=== PATIENT | female | born 1955 | race African-American/Black ===

== ENCOUNTER 2017-06-04 14:50 | Emergency (ER) | payer OTHER ==
[~2017-06-04] VITALS: Ht 162.6 cm; Wt 80.0 kg
[~2017-06-04 14:50] MED LIST: AMOXICILLIN500 MG OR; AMOXICILLIN500 MG PO; AUGMENTIN500TAB PO; AUGMENTIN875TAB PO; CITALOPRAM20 MG PO; CLARITIN10 M1 OR; COMBIVENT IN; HOME NEBULIZER; LEVOTHROID75 MCG PO; LEVOTHYROXIN50 MC1 PO; LEVOTHYROXIN75 MCG PO; LEVOTHYROXIN88 MC1 PO; LORTAB5 PO; MEDDOSEPAK OR; NAPROSYN500 MG PO; PREDNISONE20 MG PO; PROVENTIL HFA IN; VIT C/ACEROL500 MG OR; ZOFRAN ODT8 MG PO; ZPAK OR
[2017-06-04] MEDS ORDERED: [UNRECOGNIZED DRUG - REMARK] (15:10)
[2017-06-04] MEDS ORDERED: EC-NAPROSYN500 MG PO (15:56)
[2017-06-04 17:07] VITALS: BP 163/93
== END 2017-06-04 17:07 | disposition home or self-care (01) | DRG 605 ==
LOC: ED 14:50
DX: S00.83XA Contusion of other part of head, initial encounter (principal); S09.90XA Unspecified injury of head, initial encounter; R04.0 Epistaxis; W01.198A Fall on same level from slipping, tripping and stumbling with subsequent striking against other object, initial encounter; Y93.01 Activity, walking, marching and hiking; Y92.007 Garden or yard of unspecified non-institutional (private) residence as the place of occurrence of the external cause

== ENCOUNTER 2018-05-29 08:30 | Observation (INO) | payer OTHER ==
[~2018-05-29] VITALS: Ht 162.6 cm; Wt 114.1 kg
[~2018-05-29 08:30] MED LIST changes: +EC-NAPROSYN500 MG PO; +[UNRECOGNIZED DRUG - REMARK]
--- NOTE | 2018-05-29 08:35 | NUR ---
PATIENT BACK TO ROOM FOR EXAM.
[2018-05-29 09:19] LABS: HEMATOCRIT 42.5 % (37.0-47.0); HEMOGLOBIN 12.9 g/dl (12.0-16.0); IMMATURE GRANULOCYTES 0.5 % (0.0-5.0); MEAN CELL VOLUME 94.7 fL CALC (80.0-100.0); MEAN CORPUSCULAR HGB 28.7 pG CALC (26.0-32.0); MEAN CORPUSCULAR HGB CONC 30.4 g/L CALC (32.0-36.0); NEUT# 3.19 thou/uL (2.00-7.15); RED BLOOD COUNT 4.49 mill/uL (4.20-5.60); RED CELL DISTRI WIDTH 13.2 % (11.5-15.5)
[2018-05-29 09:49] LABS: ANION GAP 17 (6-22 (CALC)); BUN 7 mg/dL (8-23); BUN/CREATININE RATIO 9 (12-20 (CALC)); CARBON DIOXIDE 28 mmol/l (22-30); CHLORIDE 100 mmol/l (95-108); CREATININE 0.8 mg/dL (0.5-1.0); GFR > 60 ML/MIN (>=60 (CALC)); GFR FOR AFR.AMER. > 60 ML/MIN (>=60 (CALC)); SODIUM 140 mmol/l (137-146)
--- NOTE | 2018-05-29 10:00 | NUR ---
REPORT RECEIVED FROM KARSTEN SMITH
[2018-05-29] MEDS ORDERED: LEVOTHYROXIN75 MC1 PO (10:23)
[2018-05-29] MEDS ORDERED: MELOXICAM15 MG PO (10:23)
[2018-05-29] MEDS ORDERED: GABAPENTIN300 M2 PO (10:25)
[2018-05-29] MEDS ORDERED: ASPIRIN LOW DOS81 MG PO (10:26)
[2018-05-29] MEDS ORDERED: OXYCODONE HCL30 MG PO (10:27)
[2018-05-29] MEDS ORDERED: LISINOPRIL5 MG PO (10:27)
--- NOTE | 2018-05-29 10:28 | NUR ---
PT AMBULATED TO BATHROOM AND BACK TO BED. PT HAD COUGHING EPISODE AFTER RETURN
--- NOTE | 2018-05-29 11:02 | NUR ---
REPORT CALLED TO CHARISMA- KEN SMITH- ACCEPTED PT
--- NOTE | 2018-05-29 11:10 | NUR ---
PT ARRIVED TO MS2 VIA STRETCHER ACCOMPANIED BY ER NURSE. PT ALERT AND ORIENTED X3, AMBULATED TO BED FOR WEIGHT. ORIENTED PT TO ROOM AND CALL LIGHT, NOTED PT HAS A PRODUCTIVE COUGH CLEAR THIN SPUTUM. DISCUSSED POC. PT ASSISTED TO BATHROOM. RETURNED TO BED AND VITALS OBTAINED. ADMISSION ASSESSMENT COMPETED. DISCUSSED DIET AND ACCUCHECKS WITH PT. IV ZITHROMAX INFUSING, CALL LIGHT IN REACH,CONTINUE TO MONITOR.
--- NOTE | 2018-05-29 11:18 | NUR ---
Admission Note Report Given to: LAWRENCE RN Transported by: Wheelchair X Stretcher Transported with: X Nurse Transporter X Patent IV O2 X Tenter Feeder TRANSPORTED TO [facility] [place] WITHOUT INCIDENT
[2018-05-29 11:27] VITALS: BP 168/86
[2018-05-29 14:22] VITALS: BP 130/56
[2018-05-29 16:26] LABS: CHOLESTEROL HDL RATIO 5.6 (<4.4 (CALC))
--- NOTE | 2018-05-29 17:25 | NUR ---
DISCUSSED CT EXAM WITH PT, SHE AGREES. PT TAKEN DOWN VIA WHEELCHAIR ACCOMPANIED BY FUNERAL DIRECTOR/EMBALMER/OWNER AND PT'S BOYFRIEND. TOLERATED WELL. RETURNED PT TO ROOM AND DINNER PROVIDED. CALL LIGHT IN REACH,CONTINUE TO MONITOR.
--- NOTE | 2018-05-29 17:47 | NUR ---
DISCUSSED WITH PT NOVOLOG INSULIN AND SLIDING SCALE DOSE. PT IN AGREEMENT TO TAKE INSULIN. CALL LIGHT IN REACH,CONTINUE TO MONITOR.
[2018-05-29 19:31] VITALS: BP 134/61
--- NOTE | 2018-05-29 19:50 | NUR ---
ASSESSMENT IS COMPLETED: IV SITE IS FREE FROM REDNESS OR EDEMA. HR IS REG,PULSES ARE STRONG X4, ABD IS SOFT WITH ACTIVE BS. BREATH SOUNDS ARE COARSE AND WHEEZES, CONTINUE TO OBSERVE AND MONITOR
[2018-05-30] VITALS (7 sets, daily range): BP systolic 109–130; BP diastolic 44–68
--- NOTE | 2018-05-30 00:15 | NUR ---
PT IS RESTING IN BED, SIGNIFICANT OTHER IN THE ROOM.IV SITE IS FREE FROM REDNESS OR EDEMA. CONTINUE TO OSBERVE AND MONITOR.
--- NOTE | 2018-05-30 04:05 | NUR ---
PT HAS BEEN RESTING IN BED WITH SIGNIFICANT OTHER IN THE ROOM. IV SITE IS FREE FROM REDNESS OR EDEMA. TELE MONITOR IN PLACE. CONTINUE TO OBSERVE AND MONITOR.
--- NOTE | 2018-05-30 05:17 | NUR ---
URINE SENT TO THE LAB FOR TESTING.
[2018-05-30 05:37] LABS: URINE BILIRUBIN - DIPSTICK NEGATIVE (NEGATIVE); URINE BLOOD DIPSTICK NEGATIVE (NEGATIVE); URINE COLOR YELLOW; URINE GLUCOSE - DIPSTICK NEGATIVE (NEGATIVE); URINE KETONE NEGATIVE (NEGATIVE); URINE NITRITE - DIPSTICK NEGATIVE (Negative); URINE PH 5.5 (4.5-8.0); URINE PROTEIN - DIPSTICK NEGATIVE (NEG-TRACE); URINE UROBILINOGEN - DIPSTICK 0.2 E.U./dL (0.2)
[2018-05-30 05:39] LABS: URINE LEUK ESTERASE SMALL (NEGATIVE)
[2018-05-30 05:56] LABS: HEMATOCRIT 41.1 % (37.0-47.0); HEMOGLOBIN 12.5 g/dl (12.0-16.0); MEAN CELL VOLUME 93.4 fL CALC (80.0-100.0); MEAN CORPUSCULAR HGB 28.4 pG CALC (26.0-32.0); MEAN CORPUSCULAR HGB CONC 30.4 g/L CALC (32.0-36.0); NEUT# 8.93 thou/uL (2.00-7.15); RED BLOOD COUNT 4.4 mill/uL (4.20-5.60); RED CELL DISTRI WIDTH 13.2 % (11.5-15.5)
[2018-05-30 05:56] LABS: URINE BACTERIA FEW hpf; URINE SQUAMOUS EPITHELIAL CELL FEW EPI/hpf (0-FEW)
[2018-05-30 06:21] LABS: ALBUMIN 3.6 g/dL (3.2-5.0); ALKALINE PHOSPHATASE 92 u/l (38-126); AMYLASE 48 u/l (30-110); ANION GAP 17 (6-22 (CALC)); BILIRUBIN, TOTAL 0.4 mg/dL (0.0-1.4); BUN 13 mg/dL (8-23); BUN/CREATININE RATIO 19 (12-20 (CALC)); CARBON DIOXIDE 28 mmol/l (22-30); CHLORIDE 102 mmol/l (95-108); CREATININE 0.7 mg/dL (0.5-1.0); GFR > 60 ML/MIN (>=60 (CALC)); GFR FOR AFR.AMER. > 60 ML/MIN (>=60 (CALC)); LIPASE 18 u/l (23-300); SGOT/AST 22 u/l (9-36); SODIUM 142 mmol/l (137-146); TOTAL PROTEIN 7.2 g/dL (6.3-8.2)
--- NOTE | 2018-05-30 07:50 | NUR ---
PT RESTING IN BED, NO SIGNS OF DISTRESS NOTED, RESP EVEN AND UNLABORED. PT ALERT AND ORIENTED X3, PRODUCTIVE COUGH. DISCUSSED POC, ASSESSMENT COMPLETED AT THIS TIME, PT MEDICATED PER MAR. CALL LIGHT IN REACH,CONTINUE TO MONITOR.
--- NOTE | 2018-05-30 13:04 | NUR ---
AND ТАТЬЯНА IN ROOM DISCUSSING POC WITH PT.
--- NOTE | 2018-05-30 14:44 | NUR ---
PT AMBULATING HALLWAY, NO SIGNS OF DISTRESS NOTED, RESP EVEN AND UNLABORED. CONTINUE TO MONITOR.
--- NOTE | 2018-05-30 20:05 | NUR ---
ASSESSMENT IS COMPLETED: IV SITE IS FREE FROM REDNESS OR EDEMA. HRIS REG,PULSES ARE STRONG X4, ABD IS SOFT WITH ACTIVE BS. BREATH SOUNDS ARE CLEAR, CONTINUE TO OBSERVE AND MONITOR
--- NOTE | 2018-05-31 00:45 | NUR ---
PT IS RESTING IN BED WITH NO DISTRESS NOTED. IV SITE IS FREE FROM REDNESS OR EDMEA.
[2018-05-31 04:05] VITALS: BP 119/59
--- NOTE | 2018-05-31 04:10 | NUR ---
PT IS RESTING IN BED , STARTED TO COUGH AND WAS GIVEN MEDICATION AFTER LAB WAS DRAWN CONTINUE TO OSBERVE AND MONITOR.
[2018-05-31 04:55] LABS: HEMATOCRIT 38.6 % (37.0-47.0); IMMATURE GRANULOCYTES 0.6 % (0.0-5.0); MEAN CELL VOLUME 92.6 fL CALC (80.0-100.0); MEAN CORPUSCULAR HGB 28.8 pG CALC (26.0-32.0); MEAN CORPUSCULAR HGB CONC 31.1 g/L CALC (32.0-36.0); NEUT# 14.45 thou/uL (2.00-7.15); RED BLOOD COUNT 4.17 mill/uL (4.20-5.60); RED CELL DISTRI WIDTH 13.5 % (11.5-15.5)
[2018-05-31 05:20] LABS: ALBUMIN 3.7 g/dL (3.2-5.0); ALKALINE PHOSPHATASE 87 u/l (38-126); ANION GAP 18 (6-22 (CALC)); BILIRUBIN, TOTAL 0.3 mg/dL (0.0-1.4); BUN 20 mg/dL (8-23); BUN/CREATININE RATIO 24 (12-20 (CALC)); CARBON DIOXIDE 27 mmol/l (22-30); CHLORIDE 101 mmol/l (95-108); CREATININE 0.8 mg/dL (0.5-1.0); GFR > 60 ML/MIN (>=60 (CALC)); GFR FOR AFR.AMER. > 60 ML/MIN (>=60 (CALC)); MAGNESIUM 2.2 mg/dL (1.6-2.3); POTASSIUM 4.9 mmol/l (3.5-5.1); SGOT/AST 22 u/l (9-36); SODIUM 140 mmol/l (137-146); TOTAL PROTEIN 7.1 g/dL (6.3-8.2)
--- NOTE | 2018-05-31 07:10 | NUR ---
REPORT RECEIVED FROM NOHEMY PRATT; PT LAYING IN BED APPEARS TO BE SLEEPING; REST EVEN AND UNLBAORED; CALL SAMPSON IN REACH.
[2018-05-31 07:54] VITALS: BP 123/65
--- NOTE | 2018-05-31 07:54 | NUR ---
PT SITTING UP IN BED EATING BREAKFAST; GUARD ENTERED THE ROOM; PT GAVE THE GUARD OK FOR ANY VISITIORS TO ENTER HER ROOM INCLUDING HER BOYFRIEND; AM MEDS ADMINISTERED; PRODUCTIVE COUGH NOTED; PT VOICE NO COMPLAINS OF PAIN; RESP EVEN AND UNLABRORED; PT WANTS TO KNOW IF SHE WILL BE DC TODAY; TOLD HER DR NOT IN YET; CALL SAMPSON IN REACH; SAFETY PRECAUTION REINFORCE;
--- NOTE | 2018-05-31 11:13 | NUR ---
PT TOOK A SHOWER; AMBULATE IN THE HALLS; RESP EVEN AND UNLABORED ON ROOM AIR; TELE IN PLACE; PT VOICE NO CONCERNS;
[2018-05-31 11:30] VITALS: BP 109/81
[2018-05-31] MEDS ORDERED: DOXYCYCL HYC100 MG PO (13:50)
[2018-05-31] MEDS ORDERED: MEDDOSEPAK PO (13:50)
[2018-05-31] MEDS ORDERED: COMBIVENT RESPIMAT IN (13:51)
[2018-05-31] MEDS ORDERED: LEVEMIR100 UNIT/M SC (13:55)
[2018-05-31] MEDS ORDERED: LEVEMIR FL100 UNIT/M SC (14:27)
--- NOTE | 2018-05-31 14:35 | NUR ---
DC INSTRUCTIONS GIVEN TO PT ALONG WITH PRESCRIPTIONS; PT VERBALIZE UNDERSTANDING; IV SITE REMOVED CATHETER INTACT.
--- NOTE | 2018-05-31 14:51 | NUR ---
Discharge instructions given. Patient verbalizes understanding of same. Discharged in stable condition via Wheelchair to Home with family. All belongings sent with pt.
== END 2018-05-31 14:51 | disposition home or self-care (01) | DRG 191 ==
LOC: ED 08:30 → ED-I 10:20 → ED 10:31 → MS2 10:32
PROVIDERS: Family Medicine; Nurse Practitioner Family; ADMIT Internal Medicine Nephrology; ATTEND Internal Medicine Nephrology
DX: J44.1 Chronic obstructive pulmonary disease with (acute) exacerbation (principal); Z68.41 Body mass index [BMI] 40.0-44.9, adult; J44.0 Chronic obstructive pulmonary disease with (acute) lower respiratory infection; J20.9 Acute bronchitis, unspecified; J02.0 Streptococcal pharyngitis; I10 Essential (primary) hypertension; E11.40 Type 2 diabetes mellitus with diabetic neuropathy, unspecified; E66.9 Obesity, unspecified; M19.90 Unspecified osteoarthritis, unspecified site; E03.9 Hypothyroidism, unspecified; M51.36 Other intervertebral disc degeneration, lumbar region; T38.3X6A Underdosing of insulin and oral hypoglycemic [antidiabetic] drugs, initial encounter; F17.210 Nicotine dependence, cigarettes, uncomplicated; Z91.128 Patient's intentional underdosing of medication regimen for other reason
CPT/HCPCS: J1650

== ENCOUNTER 2018-06-07 10:47 | Emergency (ER) | payer OTHER ==
[~2018-06-07] VITALS: Ht 162.6 cm; Wt 109.0 kg
[~2018-06-07 10:47] MED LIST changes: +ASPIRIN LOW DOS81 MG PO; +COMBIVENT RESPIMAT IN; +DOXYCYCL HYC100 MG PO; +GABAPENTIN300 M2 PO; +LEVEMIR FL100 UNIT/M SC; +LEVEMIR100 UNIT/M SC; +LEVOTHYROXIN75 MC1 PO; +LISINOPRIL5 MG PO; +MEDDOSEPAK PO; +MELOXICAM15 MG PO; +OXYCODONE HCL30 MG PO
[2018-06-07 11:31] LABS: URINE BILIRUBIN - DIPSTICK NEGATIVE (NEGATIVE); URINE BLOOD DIPSTICK NEGATIVE (NEGATIVE); URINE COLOR YELLOW; URINE GLUCOSE - DIPSTICK NEGATIVE (NEGATIVE); URINE KETONE TRACE mg/dL (NEGATIVE); URINE NITRITE - DIPSTICK NEGATIVE (Negative); URINE PH 5.5 (4.5-8.0); URINE PROTEIN - DIPSTICK NEGATIVE (NEG-TRACE); URINE UROBILINOGEN - DIPSTICK 0.2 E.U./dL (0.2)
[2018-06-07 11:32] LABS: HEMATOCRIT 44.5 % (37.0-47.0); HEMOGLOBIN 13.9 g/dl (12.0-16.0); IMMATURE GRANULOCYTES 1.1 % (0.0-5.0); MEAN CELL VOLUME 91.4 fL CALC (80.0-100.0); MEAN CORPUSCULAR HGB 28.5 pG CALC (26.0-32.0); MEAN CORPUSCULAR HGB CONC 31.2 g/L CALC (32.0-36.0); NEUT# 5.19 thou/uL (2.00-7.15); RED BLOOD COUNT 4.87 mill/uL (4.20-5.60); RED CELL DISTRI WIDTH 13.2 % (11.5-15.5); URINE BACTERIA FEW hpf; URINE EPITHELIAL CELLS MANY EPI/hpf (0-FEW); URINE LEUK ESTERASE MODERATE (NEGATIVE)
[2018-06-07 11:34] LABS: ALBUMIN 3.5 g/dL (3.2-5.0); ALKALINE PHOSPHATASE 106 u/l (38-126); ANION GAP 13 (6-22 (CALC)); BILIRUBIN, TOTAL 0.5 mg/dL (0.0-1.4); BUN 27 mg/dL (8-23); BUN/CREATININE RATIO 24 (12-20 (CALC)); CARBON DIOXIDE 30 mmol/l (22-30); CHLORIDE 96 mmol/l (95-108); CREATININE 1.1 mg/dL (0.5-1.0); GFR 50 ML/MIN (>=60 (CALC)); GFR FOR AFR.AMER. > 60 ML/MIN (>=60 (CALC)); LIPASE 121 u/l (23-300); POTASSIUM 4.6 mmol/l (3.5-5.1); SGOT/AST 14 u/l (9-36); SODIUM 135 mmol/l (137-146); TOTAL PROTEIN 6.6 g/dL (6.3-8.2)
[2018-06-07] MEDS ORDERED: KEFLEX500 M1 PO (12:57)
[2018-06-07 13:17] VITALS: BP 127/72
== END 2018-06-07 13:17 | disposition home or self-care (01) | DRG 690 ==
LOC: ED 10:47
PROVIDERS: Family Medicine
DX: N39.0 Urinary tract infection, site not specified (principal); E11.9 Type 2 diabetes mellitus without complications; I10 Essential (primary) hypertension

== ENCOUNTER 2019-05-19 12:23 | Observation (INO) | payer OTHER ==
[~2019-05-19] VITALS: Ht 162.6 cm; Wt 97.4 kg
[~2019-05-19 12:23] MED LIST changes: +KEFLEX500 M1 PO
--- NOTE | 2019-05-19 12:37 | NUR ---
PT TO ROOM WITH STEADY GAIT
[2019-05-19] MEDS ORDERED: METFORMIN HCL500 M1 PO (13:18)
--- NOTE | 2019-05-19 13:26 | NUR ---
Pt. moved to rm #10 for higher level of care.
--- NOTE | 2019-05-19 13:49 | NUR ---
PT RESTING QUIETLY ON STRETCHER, TALKING WITHOUT ANY SIGNS OF DISTRESS. JOKING WITH STAFF
--- NOTE | 2019-05-19 14:35 | NUR ---
PT AMBULATED TO ROOM WITH STEADY GAIT
[2019-05-19 14:36] LABS: HEMATOCRIT 42.3 % (37.0-47.0); HEMOGLOBIN 12.9 g/dl (12.0-16.0); IMMATURE GRANULOCYTES 0.5 % (0.0-5.0); MEAN CORPUSCULAR HGB 28.4 pG CALC (26.0-32.0); MEAN CORPUSCULAR HGB CONC 30.5 g/L CALC (32.0-36.0); NEUT# 1.63 thou/uL (2.00-7.15); RED BLOOD COUNT 4.55 mill/uL (4.20-5.60); RED CELL DISTRI WIDTH 13.8 % (11.5-15.5)
[2019-05-19 14:54] LABS: ANION GAP 11 (6-22 (CALC)); BUN 4 mg/dL (8-23); BUN/CREATININE RATIO 5 (12-20 (CALC)); CARBON DIOXIDE 29 mmol/l (22-30); CHLORIDE 102 mmol/l (95-108); CREATININE 0.8 mg/dL (0.5-1.0); GFR > 60 ML/MIN (>=60 (CALC)); GFR FOR AFR.AMER. > 60 ML/MIN (>=60 (CALC)); POTASSIUM 4.3 mmol/l (3.5-5.1); SODIUM 138 mmol/l (137-146)
--- NOTE | 2019-05-19 15:18 | NUR ---
PT DENIES ANY CHEST PAIN OR SOB, WARM BLANKETS GIVEN, LIGHTS TURNED OFF, CALL LIGHT WITHIN REACH, PT STATES SHE JUST WANTS TO GO TO SLEEP. VITAL SIGNS STABLE.
--- NOTE | 2019-05-19 15:26 | NUR ---
ANTIBIOTICS INFUSING. PT STATES FEELS MUCH BETTER
--- NOTE | 2019-05-19 16:09 | NUR ---
PT UP TO BEDSIDE COMMODE
--- NOTE | 2019-05-19 17:45 | NUR ---
PT TAKEN TO MED SURG PER W/C WITH TELEMENTRY
[2019-05-19 18:20] VITALS: BP 147/78
--- NOTE | 2019-05-19 18:43 | NUR ---
PT ARRIVED TO FLOOR VIA WHEELCHAIR @ 1815. PT ALERT AND ORIENTED. AMBULATED BY SELF TO BED. STEADY GAIT. DENIES WEAKNESS. PT ORIENTED TO ROOM AND EQUIPMENT. PLAN OF CARE DISCUSSED. CALL LIGHT REVIEWED AND IN REACH. FALL PRECAUTIONS REINFORCED. PT DENIES PAIN. REPORTING OF CONCERNS ENCOURAGED. INSPIRATORY WHEEZING HEARD THROUGHOUT UPPER LUNG MESSINA, DIMINISHED IN BASES. NO SOB. REPORTS PRODUCTIVE COUGH W/ YELLOW, THICK SPUTUM PRIOR TO ARRIVAL TO HOSPITAL. TELE UNIT IN PLACE. LAST BM THIS AM, LOOSE BROWN. DENIES NAUSEA. SKIN INTACT. #22 RAC, FREE OF REDNESS/SWELLING. NO COMPLAINTS AT THIS TIME.
--- NOTE | 2019-05-19 19:46 | NUR ---
ASSESSMENT COMPLETED. IV SITE PATENT AND SL, FLUSHES WELL. PT. DENIES NEEDS/PAIN. INCENTIVE SPIROMTERE USE AT THIS TIME AND PULLING 1000; GOAL SET TO 1500. WILL CONTINUE TO MONITOR. PT. ON RA; NO SOB NOTED. EDUCATED ON POC. FAMILY AT BEDSIDE. CALL LIGHT IS IN REACH.
--- NOTE | 2019-05-19 22:05 | NUR ---
PT. REQUESTS PRN SONATA TO ASSIST WITH SLEEP AND MEDICATED PER ORDER. DENIES FURTHER NEEDS. CALL LIGHT IS IN REACH.
[2019-05-19 23:37] VITALS: BP 124/62
--- NOTE | 2019-05-19 23:47 | NUR ---
PT. SLEEPING AND AWAKENED FOR VS. DENIES NEEDS. CALL LIGHT IS IN REACH.
--- NOTE | 2019-05-20 02:19 | NUR ---
RESTING IN BED WITH EYES CLOSED. RESP. EVEN AND UNLABORED. CALL LIGHT IS IN REACH.
[2019-05-20 03:50] VITALS: BP 124/67
--- NOTE | 2019-05-20 05:12 | NUR ---
PT. RESTING IN BED WITH NO DISTRESS NOTED; RECEIVING NEB TX AND SCHED MEDS GIVEN. CALL LIGHT IS IN REACH. VOICES NO CONCERNS.
[2019-05-20 07:36] VITALS: BP 127/67
--- NOTE | 2019-05-20 07:42 | NUR ---
ASSESSMENT DONE. TELE IN PLACE. PT IS A&O X3. PT STATES SHE HAS HEADACHE. MEDICATED PT WITH TYLENOL. IVF INFUSING WELL. PT DENIES ANY OTHER NEEDS AT THIS TIME. CALL LIGHT IN REACH.
[2019-05-20 11:27] VITALS: BP 155/74
--- NOTE | 2019-05-20 12:00 | NUR ---
PT IS RESTING IN BED WITH NO S/S OF DISTRESS NOTED. PO FLUIDS PROVIDED. PT DENIES PAIN OR NEEDS AT THIS TIME. CALL LIGHT IN REACH.
--- NOTE | 2019-05-20 12:40 | NUR ---
PT IS SITTING IN CHAIR. PT DENIES NEEDS. CALL LIGHT IN REACH.
[2019-05-20 15:20] VITALS: BP 157/71
--- NOTE | 2019-05-20 16:30 | NUR ---
PT IS RESTING IN BED AND VISITING WITH FAMILY IN ROOM. PO FLUIDS PROVIDED. PT DENIES ANY OTHER NEEDS AT THIS TIME. CALL LIGHT IN REACH.
[2019-05-20 19:20] VITALS: BP 126/62
--- NOTE | 2019-05-20 21:30 | NUR ---
PT MEDICATED ORDERS PROVIDE AND PT ASSESSEMENT COMPLETED AT THIS TIME. NO S/O DISTRESS NOTED. PT REPORTS FEELING BETTER, BUT NOT WANTING BREATHING TREATMENT TONIGHT STATES THAT IT "MAKES MY HEART HURT AND RACE EVERYTIME THEY GIVE IT TO ME." SCHEDULE OF MEDS AND POC DISCUSSED AT THIS TIME. PT LEFT W/CALL LIGHT NEAR, LIGHTS AND TV ON. DENIES ANY OTHER NEEDS.
[2019-05-21 00:02] VITALS: BP 107/57
--- NOTE | 2019-05-21 00:05 | NUR ---
PT SLEEPING W/LIGHTS AND TV ON. NO S/O DISTRESS NOTED.
--- NOTE | 2019-05-21 02:12 | NUR ---
PT SLEEPING, NO S/O DISTRESS NOTED. CALL LIGHT W/IN REACH.
[2019-05-21 03:43] VITALS: BP 119/58
[2019-05-21 05:10] LABS: HEMATOCRIT 38.7 % (37.0-47.0); HEMOGLOBIN 11.8 g/dl (12.0-16.0); IMMATURE GRANULOCYTES 0.7 % (0.0-5.0); MEAN CELL VOLUME 94.9 fL CALC (80.0-100.0); MEAN CORPUSCULAR HGB 28.9 pG CALC (26.0-32.0); MEAN CORPUSCULAR HGB CONC 30.5 g/L CALC (32.0-36.0); NEUT# 12.3 thou/uL (2.00-7.15); RED BLOOD COUNT 4.08 mill/uL (4.20-5.60); RED CELL DISTRI WIDTH 14.4 % (11.5-15.5)
[2019-05-21 05:29] LABS: ANION GAP 12 (6-22 (CALC)); BUN 9 mg/dL (8-23); BUN/CREATININE RATIO 13 (12-20 (CALC)); CARBON DIOXIDE 25 mmol/l (22-30); CHLORIDE 108 mmol/l (95-108); CREATININE 0.7 mg/dL (0.5-1.0); GFR > 60 ML/MIN (>=60 (CALC)); GFR FOR AFR.AMER. > 60 ML/MIN (>=60 (CALC)); POTASSIUM 4.6 mmol/l (3.5-5.1); SODIUM 140 mmol/l (137-146)
--- NOTE | 2019-05-21 05:32 | NUR ---
PT WAS SLEEPING SOUNDLY UPON MY ENTERING ROOM. AWOKE TO MY VOICE. ASSISTED PT TO RESTROOM AND BACK TO BED. MEDICATED ORDERS PROVIDE. PT DENIES ANY OTHER NEEDS.
[2019-05-21 07:54] VITALS: BP 135/59
--- NOTE | 2019-05-21 07:54 | NUR ---
PT SITTING IN BED. A&O X3. NO DISTRESS NOTED. WHEEZING HEARD UPON AUSCULTATION. NO PAIN REPORTED AT THIS TIME. DISCUSSED POC. ASSESSMENT COMPLETED. CALL LIGHT IN REACH. CONTINUE TO MONITOR.
[2019-05-21] MEDS ORDERED: LEVAQUIN750 MG PO (10:04)
[2019-05-21] MEDS ORDERED: PREDNISONE10 MG PO (10:05)
[2019-05-21 10:44] VITALS: BP 120/61
--- NOTE | 2019-05-21 11:34 | NUR ---
SPIRIVA INHALER INSTRUCTIONS GIVEN TO PT. PT DEMONSTARTED PROPER USE OF DEVICE. IS AT BEDSIDE, PT ALSO DEMONSTRATING PROPER USE OF DEVICE.
--- NOTE | 2019-05-21 14:06 | NUR ---
PT SITTING IN BED WATCHING TV, ROCEPHIN IV INITIATED. CONTINUE TO MONITOR.
--- NOTE | 2019-05-21 15:15 | NUR ---
D/C INSTRUCTIONS GIVEN TO PT. PT VERBALIZED UNDERSTANDING.
--- NOTE | 2019-05-21 15:31 | NUR ---
Discharge instructions given. Patient verbalizes understanding of same. Discharged in stable condition via ambulatory to home with family. All belongings sent with pt.
== END 2019-05-21 15:31 | disposition home or self-care (01) | DRG 203 ==
LOC: ED 12:23 → ED-I 15:13 → ED 15:31 → MS2 15:32
PROVIDERS: Family Medicine; Nurse Practitioner Family; ADMIT Internal Medicine; ATTEND Internal Medicine
DX: J40 Bronchitis, not specified as acute or chronic (principal); I10 Essential (primary) hypertension; E11.40 Type 2 diabetes mellitus with diabetic neuropathy, unspecified; E03.9 Hypothyroidism, unspecified; G89.29 Other chronic pain; Z79.84 Long term (current) use of oral hypoglycemic drugs
CPT/HCPCS: G0378

== ENCOUNTER 2020-07-21 12:21 | Emergency (ER) | payer MEDICARE, OTHER ==
[~2020-07-21] VITALS: Ht 162.6 cm; Wt 72.7 kg
[~2020-07-21 12:21] MED LIST changes: +LEVAQUIN750 MG PO; +METFORMIN HCL500 M1 PO; +PREDNISONE10 MG PO
[2020-07-21 12:55] LABS: IMMATURE GRANULOCYTES 0.2 % (0.0-5.0); MEAN CELL VOLUME 94.5 fL CALC (80.0-100.0); MEAN CORPUSCULAR HGB 29.6 pG CALC (26.0-32.0); MEAN CORPUSCULAR HGB CONC 31.4 g/dL CAL (32.0-36.0); NEUT# 3.27 thou/uL (2.00-7.15); RED BLOOD COUNT 5.06 mill/uL (4.20-5.60); RED CELL DISTRI WIDTH 13.7 % (11.5-15.5)
[2020-07-21 13:01] LABS: HEMATOCRIT 47.8 % (37.0-47.0)
[2020-07-21 13:13] LABS: ALKALINE PHOSPHATASE 90 u/l (38-126); ANION GAP 12 (6-22 (CALC)); BUN 10 mg/dL (8-23); BUN/CREATININE RATIO 13 (12-20 (CALC)); CARBON DIOXIDE 30 mmol/l (22-30); CHLORIDE 98 mmol/l (95-108); CREATININE 0.8 mg/dL (0.5-1.0); GFR > 60 ML/MIN (>=60 (CALC)); GFR FOR AFR.AMER. > 60 ML/MIN (>=60 (CALC)); POTASSIUM 4.5 mmol/l (3.5-5.1); SGOT/AST 23 u/l (9-36); SODIUM 136 mmol/l (137-146); TOTAL PROTEIN 7.9 g/dL (6.3-8.2)
[2020-07-21 13:17] LABS: ALBUMIN 4.3 g/dL (3.2-5.0); BILIRUBIN, TOTAL 0.8 mg/dL (0.0-1.4)
[2020-07-21 14:31] LABS: URINE BILIRUBIN - DIPSTICK NEGATIVE (NEGATIVE); URINE BLOOD DIPSTICK NEGATIVE (NEGATIVE); URINE COLOR YELLOW; URINE GLUCOSE - DIPSTICK NEGATIVE (NEGATIVE); URINE KETONE NEGATIVE (NEGATIVE); URINE LEUK ESTERASE NEGATIVE (NEGATIVE); URINE NITRITE - DIPSTICK NEGATIVE (Negative); URINE PROTEIN - DIPSTICK NEGATIVE (NEG-TRACE)
[2020-07-21 14:58] VITALS: BP 184/88
== END 2020-07-21 15:09 | disposition home or self-care (01) ==
LOC: ED 12:21
DX: R42 Dizziness and giddiness (principal); I10 Essential (primary) hypertension; E11.9 Type 2 diabetes mellitus without complications; E66.01 Morbid (severe) obesity due to excess calories; F17.210 Nicotine dependence, cigarettes, uncomplicated; Z79.84 Long term (current) use of oral hypoglycemic drugs; Z20.822 Contact with and (suspected) exposure to COVID-19

== ENCOUNTER 2020-10-16 06:40 | Day surgery (SDC) | payer MEDICARE, OTHER ==
[~2020-10-16 06:40] MED LIST changes: +ALBUTEROL SUL0.083 % IN
[2020-10-16 09:23] VITALS: BP 102/60
== END 2020-10-16 09:35 | disposition home or self-care (01) ==
LOC: ORM 06:40
PROVIDERS: ATTEND Surgery
PROC: 0DJD8ZZ Inspection of Lower Intestinal Tract, Via Natural or Artificial Opening Endoscopic (ICD-10-PCS; principal; 2020-10-16)
PROC: 0DJ08ZZ Inspection of Upper Intestinal Tract, Via Natural or Artificial Opening Endoscopic (ICD-10-PCS; 2020-10-16)
DX: K57.30 Diverticulosis of large intestine without perforation or abscess without bleeding (principal); K64.8 Other hemorrhoids; K44.9 Diaphragmatic hernia without obstruction or gangrene; E11.9 Type 2 diabetes mellitus without complications; F17.210 Nicotine dependence, cigarettes, uncomplicated; Z79.84 Long term (current) use of oral hypoglycemic drugs

== ENCOUNTER 2021-01-24 09:14 | Observation (INO) | payer MEDICARE, OTHER ==
[~2021-01-24] VITALS: Ht 162.6 cm; Wt 74.0 kg
--- NOTE | 2021-01-24 09:30 | NUR ---
PT TO ROOM FOR TRIAGE WITH STEADY GAIT
[2021-01-24 10:30] LABS: IMMATURE GRANULOCYTES 0.2 % (0.0-5.0); MEAN CELL VOLUME 95.2 fL CALC (80.0-100.0); MEAN CORPUSCULAR HGB 29.3 pG CALC (26.0-32.0); MEAN CORPUSCULAR HGB CONC 30.8 g/dL CAL (32.0-36.0); NEUT# 2.04 thou/uL (2.00-7.15); RED BLOOD COUNT 4.37 mill/uL (4.20-5.60); RED CELL DISTRI WIDTH 12.9 % (11.5-15.5)
[2021-01-24 10:34] LABS: HEMATOCRIT 41.6 % (37.0-47.0); HEMOGLOBIN 12.8 g/dl (12.0-16.0)
--- NOTE | 2021-01-24 10:45 | NUR ---
PT RESTING. STABLE ON MONITOR. REPORTS PAIN IMPROVED BUT SILL THERE, 10/25. BLANKET PROVIDED.
[2021-01-24 10:49] LABS: ALBUMIN 3.7 g/dL (3.2-5.0); ALKALINE PHOSPHATASE 88 u/l (38-126); ANION GAP 9 (6-22 (CALC)); BILIRUBIN, TOTAL 0.5 mg/dL (0.0-1.4); BUN 3 mg/dL (8-23); BUN/CREATININE RATIO 5 (12-20 (CALC)); CARBON DIOXIDE 31 mmol/l (22-30); CHLORIDE 100 mmol/l (95-108); CREATININE 0.7 mg/dL (0.5-1.0); GFR > 60 ML/MIN (>=60 (CALC)); GFR FOR AFR.AMER. > 60 ML/MIN (>=60 (CALC)); POTASSIUM 4.3 mmol/l (3.5-5.1); SGOT/AST 38 u/l (9-36); SODIUM 136 mmol/l (137-146); TOTAL PROTEIN 7.2 g/dL (6.3-8.2)
--- NOTE | 2021-01-24 13:15 | NUR ---
LUNCH TRAY PROVIDED FOR PT.
--- NOTE | 2021-01-24 13:44 | NUR ---
ATTEMPTED TO CALL REPORT TO FLOOR, NURSE KEENAN TO CALL BACK.
[2021-01-24 14:06] VITALS: BP 132/72
--- NOTE | 2021-01-24 14:11 | NUR ---
RECEIVED REPORT FROM ED NURSE/ELVIA.RN. ALL QUESTIONS
--- NOTE | 2021-01-24 14:16 | NUR ---
REPORT GIVEN TO LUIS KEENAN ON [employer].
--- NOTE | 2021-01-24 14:23 | NUR ---
PATIENT ARRIVED ON FLOOR VIA WHEELCHAIR ACCOMPANIED BY ED NURSE. PT ALERT AND ORIENTED X3. PT DENIES ANY PAIN OR DISCOMFORT OTHER THAN BEING HUNGRY AT THIS TIME. PT AMBULATORY AND AMBULATED TO BED. IV RFA FLUSHED AND IS PATENT. VITAL SIGNS AND ASSESSMENT COMPLETED. LUNGS DIMINISHED ABDOMEN SOFT AND NONTENDER. PERRLA PERIPHERAL PULSES PALPABLE. LEFT LOWER EXTREMETY PULSE2 RIGHT LE PULSE3. NO EDEMA PRESENT. PT ORIENTED TO ROOM AND CALL LIGHT. SAFETY MEASURES IN PLACE AND CALL LIGHT WITHIN PATIENT REACH. WILL MONITOR PATIENT CLOSELY
--- NOTE | 2021-01-24 14:30 | NUR ---
PT TAKES METFORMIN AT HOME. ACCUCHEK COMPLETE [id number]
[2021-01-24 19:00] VITALS: BP 150/69
[2021-01-25] VITALS: BP 147/66
[2021-01-25 04:00] VITALS: BP 139/68
[2021-01-25 05:56] LABS: HEMATOCRIT 40.3 % (37.0-47.0); HEMOGLOBIN 12.6 g/dl (12.0-16.0); MEAN CELL VOLUME 94.2 fL CALC (80.0-100.0); MEAN CORPUSCULAR HGB 29.4 pG CALC (26.0-32.0); MEAN CORPUSCULAR HGB CONC 31.3 g/dL CAL (32.0-36.0); RED BLOOD COUNT 4.28 mill/uL (4.20-5.60); RED CELL DISTRI WIDTH 12.8 % (11.5-15.5)
[2021-01-25 06:04] LABS: ANION GAP 11 (6-22 (CALC)); BUN 3 mg/dL (8-23); BUN/CREATININE RATIO 4 (12-20 (CALC)); CALCULATED LDLCHOLESTEROL 116 mg/dL (62-129 (CALC)); CARBON DIOXIDE 30 mmol/l (22-30); CHLORIDE 101 mmol/l (95-108); CHOLESTEROL HDL RATIO 4.8 (<4.4 (CALC)); CREATININE 0.7 mg/dL (0.5-1.0); GFR > 60 ML/MIN (>=60 (CALC)); GFR FOR AFR.AMER. > 60 ML/MIN (>=60 (CALC)); HDL CHOLESTEROL 37 mg/dL (>=40); POTASSIUM 4.2 mmol/l (3.5-5.1); SODIUM 137 mmol/l (137-146); TOTAL CHOLESTEROL 178 mg/dl (0-199); TOTAL TRIGLYCERIDES 121 mg/dl (30-149); VLDL CHOLESTROL 24 mg/dl (1-41 (CALC))
[2021-01-25 06:05] LABS: MAGNESIUM 1.6 mg/dL (1.6-2.3)
[2021-01-25 08:55] VITALS: BP 128/59
--- NOTE | 2021-01-25 08:55 | NUR ---
BEDSIDE REPORT RECEIVED AT CHANGE OF SHIFT. PT LYING IN BED AWAKE. NO COMPLAINTS AT THIS TIME. PT SAT 100% ON RA. STATED SHES READY TO GO HOME TODAY IF SHE CAN. WILL CONTINUE TO MONITOR.
[2021-01-25] MEDS ORDERED: ZPAK PO (09:45)
[2021-01-25] MEDS ORDERED: TESSALON PERLE100 MG PO (11:18)
[2021-01-25] MEDS ORDERED: ASPIRIN REGULA325 M1 PO (11:19)
[2021-01-25 12:00] VITALS: BP 170/85
[2021-01-25 12:49] VITALS: BP 170/85
--- NOTE | 2021-01-25 12:49 | NUR ---
Discharge instructions given. Patient verbalizes understanding of same. Discharged in stable condition via Wheelchair to Home with family. All belongings sent with pt. PT TO IV THERAPY FOR ANTIBODY THERAPY AND TO HOME.
== END 2021-01-25 12:56 | disposition home or self-care (01) ==
LOC: ED 09:14 → ED-I 11:20 → ED 11:47 → MS2 11:48
PROVIDERS: Family Medicine; Nurse Practitioner; ADMIT Hospitalist; ATTEND Hospitalist
DX: U07.1 COVID-19 (principal); E11.9 Type 2 diabetes mellitus without complications; I10 Essential (primary) hypertension; E03.9 Hypothyroidism, unspecified; G89.4 Chronic pain syndrome; Z79.84 Long term (current) use of oral hypoglycemic drugs
CPT/HCPCS: G0378; J1650

== ENCOUNTER 2023-12-20 08:18 | Observation (INO) | payer MEDICARE, OTHER ==
[~2023-12-20] VITALS: Ht 162.6 cm; Wt 98.8 kg
[2023-12-20] VITALS (14 sets, daily range): BP systolic 116–144; BP diastolic 56–78
[~2023-12-20 08:18] MED LIST changes: +ASPIRIN REGULA325 M1 PO; +TESSALON PERLE100 MG PO; +ZPAK PO
[2023-12-20 09:07] LABS: BASO% 0.2 % (0-3); EOS% 3.7 % (0-8); HEMATOCRIT 36.5 % (37.0-47.0); HEMOGLOBIN 11.4 g/dl (12.0-16.0); IMMATURE GRANULOCYTES 0.2 % (0.0-5.0); LYMPH% 35.1 % (15-41); MEAN CELL VOLUME 91.3 fL CALC (80.0-100.0); MEAN CORPUSCULAR HGB 28.5 pG CALC (26.0-32.0); MEAN CORPUSCULAR HGB CONC 31.2 g/dL CAL (32.0-36.0); MONO% 17.5 % (2-13); NEUT# 2.54 thou/uL (2.00-7.15); NEUT% 43.3 % (42-76); RED CELL DISTRI WIDTH 14.6 % (11.5-15.5)
[2023-12-20 09:17] LABS: ALBUMIN 3.9 g/dL (3.2-5.0); ALKALINE PHOSPHATASE 91 u/l (38-126); ANION GAP 7 (6-22 (CALC)); BILIRUBIN, TOTAL 0.6 mg/dL (0.02-1.3); BUN 9 mg/dL (8-23); BUN/CREATININE RATIO 9 (12-20 (CALC)); CARBON DIOXIDE 28 mmol/l (22-30); CHLORIDE 106 mmol/l (95-108); CREATININE 0.9 mg/dL (0.5-1.0); ESTIMATED GFR 69 ML/MIN (>=90 (CALC)); POTASSIUM 4.1 mmol/l (3.5-5.1); SODIUM 136 mmol/l (137-146); TOTAL PROTEIN 7.9 g/dL (6.3-8.2)
[2023-12-20 09:24] LABS: SGOT/AST 85 u/l (9-36)
[2023-12-20 11:21] LABS: URINE BILIRUBIN - DIPSTICK Negative (NEGATIVE); URINE BLOOD DIPSTICK Trace-intact (NEGATIVE); URINE GLUCOSE - DIPSTICK Negative (NEGATIVE); URINE KETONE Negative (NEGATIVE); URINE NITRITE - DIPSTICK Negative (Negative); URINE PH 6.5 (4.5-8.0); URINE PROTEIN - DIPSTICK Negative (NEG-TRACE)
[2023-12-20 11:23] LABS: URINE COLOR Yellow; URINE LEUK ESTERASE Small (NEGATIVE)
[2023-12-20 11:24] LABS: URINE BACTERIA FEW hpf; URINE EPITHELIAL CELLS FEW EPI/hpf (0-FEW); URINE RBC 0-2 RBC/hpf (0-5)
--- NOTE | 2023-12-20 12:00 | NUR ---
REPORT RECEIVED FROM OSKAR IN ED, PT ARRIVED ON UNIT @ 1201 TRANSPORTED VIA STRETCHER AND AMBULATED TO BED WHERE SHE WAS SETTLED. ALERT AND ORIENTED X 4, DENIES PAIN BUT C/O WEAKNESS, SHE IS HAVING A NON-PRODUCTIVE COUGH AT THIS TIME, TELE MONITOR IN PLACE, ORIENTED TO ROOM AND CALL SAMPSON, BED LOCKED IN LOWEST POSITION.
[2023-12-20] MEDS ORDERED: MAGNESIUM HYDROXIDE 30 ML UDC PO PRN (12:40)
[2023-12-20] MEDS ORDERED: ACETAMINOPHEN 325 MG/TAB PO PRN (12:40)
[2023-12-20] MEDS ORDERED: SODIUM CHLORIDE 0.9% 1,000 ML IV PRN (12:40)
[2023-12-20] MEDS ORDERED: DEXTROSE 250 ML IV PRN (12:45)
--- NOTE | 2023-12-20 16:02 | NUR ---
RESTING QUIETLY, NO NEW COMPLAINS.
[2023-12-20] MEDS ORDERED: INSULIN LISPRO 100 UNITS/ML ML SC SCH (17:00)
--- NOTE | 2023-12-20 20:00 | NUR ---
BEDSIDE SHIFT REPORT COMPLETED. RESP EVEN AND UNLABORED. CONTINUES ON ISOLATION PRECDAUTIONS FOR COVID. DENIES SHORTNESS OF BREATH.
[2023-12-20] MEDS ORDERED: ENOXAPARIN SODIUM 40 MG/0.4 ML SYR SC SCH (21:00)
--- NOTE | 2023-12-21 | NUR ---
RESTING IN BED. AWAKE ALERT ORIENTED. GOOD RESULTS FROM PAIN MEDICATION. AMBULATORY WITH NO ASSISTANCE. DENIES SHORTNESS OF BREATH. NON-PRODUCTIVE COUGH. CALL LIGHT IN REACH.
[2023-12-21] MEDS ORDERED: ATORVASTATIN CA80 MG PO (03:58)
[2023-12-21] MEDS ORDERED: LEVOTHYROXIN50 MC1 PO (03:59)
--- NOTE | 2023-12-21 04:00 | NUR ---
DENIES PAIN OR DISCOMFORT. AMBULATING IN ROOM. ALERT ORIENTED X4. RESP EVEN AND UNLABORED. CALL LIGHT IN REACH.
[2023-12-21 04:10] VITALS: BP 105/43
[2023-12-21 04:53] LABS: BASO% 0.2 % (0-3); HEMATOCRIT 33.6 % (37.0-47.0); HEMOGLOBIN 10.3 g/dl (12.0-16.0); IMMATURE GRANULOCYTES 0.2 % (0.0-5.0); LYMPH% 53.1 % (15-41); MEAN CELL VOLUME 92.1 fL CALC (80.0-100.0); MEAN CORPUSCULAR HGB 28.2 pG CALC (26.0-32.0); MEAN CORPUSCULAR HGB CONC 30.7 g/dL CAL (32.0-36.0); MONO% 13.1 % (2-13); NEUT# 1.36 thou/uL (2.00-7.15); NEUT% 28.4 % (42-76); RED BLOOD COUNT 3.65 mill/uL (4.20-5.60); RED CELL DISTRI WIDTH 14.7 % (11.5-15.5)
[2023-12-21 05:18] LABS: BILIRUBIN, TOTAL 0.5 mg/dL (0.02-1.3); C-REACTIVE PROTEIN 4.6 mg/dL (0-0.9); CREATININE 0.8 mg/dL (0.5-1.0); POTASSIUM 4.1 mmol/l (3.5-5.1); TOTAL PROTEIN 6.4 g/dL (6.3-8.2)
[2023-12-21] MEDS ORDERED: LEVOTHYROXINE SODIUM 25 MCG/TAB PO SCH (06:00)
[2023-12-21 06:50] VITALS: BP 123/66
--- NOTE | 2023-12-21 07:29 | NUR ---
PATIENT LAYING IN BED WATCHING TV. PATIENT A&OX4 AND ABLE TO MAKE NEEDS KNOWN. PATIENT ABDOMEN SOFT AND NONTENDER, RESPIRATIONS EVEN AND UNLABORED, PEDAL PULSES PRESENT. PATIENT DENIES ANY NEEDS AT THIS TIME. WILL CONTINUE TO MONITOR.
[2023-12-21] MEDS ORDERED: ASPIRIN 325 MG/TAB PO SCH (09:00)
[2023-12-21] MEDS ORDERED: DEXAMETHASONE 2 MG/TAB TAB PO SCH (10:00)
[2023-12-21] MEDS ORDERED: AZITHROMYCIN 250 MG/TAB PO SCH (10:00)
[2023-12-21 11:00] VITALS: BP 147/58
--- NOTE | 2023-12-21 12:00 | NUR ---
PATIENT SITTING UP IN BED HAVING LUNCH. PATIENT DENIES ANY NEEDS AT THIS TIME. WILL CONTINUE TO MONITOR.
[2023-12-21 15:40] VITALS: BP 141/51
--- NOTE | 2023-12-21 16:03 | NUR ---
PATIENT LAYING IN BED, WATCHING TV. PATIENT DENIES ANY NEEDS AT THIS TIME. WILL CONTINUE TO MONITOR.
[2023-12-21 19:15] VITALS: BP 142/58
--- NOTE | 2023-12-21 20:45 | NUR ---
PATIENT IN BED WATCHING TV. A&O X4, CAN MAKE NEEDES KNOWN. BED SIDE REPORT COMPLETED. CLEAR LUNG SOUNDS. STRONG PERIPHERAL PULSES. BED AT LOWEST POSITION, CALL LIGHT WITH IN REACH.
--- NOTE | 2023-12-22 00:28 | NUR ---
PATIENT RESTING IN BED AWAKE WATCHING TV. CAN MAKE NEEDS KNOWN. NONE NEEDED AT THIS TIME. BED AT LOWEST POSITION, CALL LIGHT WITH IN REACH.
[2023-12-22 00:32] VITALS: BP 131/62
--- NOTE | 2023-12-22 04:20 | NUR ---
PATIENT IN BED RESTING, WITH EYES CLOSED. RESPIRATIONS EVEN AND UNLABORD. BED AT LOWEST POSITIO, CALL LIGHT WITH IN REACH.
[2023-12-22 05:11] VITALS: BP 123/58
--- NOTE | 2023-12-22 07:30 | NUR ---
Report received from rn surgery nurse. Patient is resting in bed, A&Ox4, on room air and tolerating. IV fluids running as ordered. Plan for patient to discharge home today. All needs addressed, call light within reach.
[2023-12-22 08:14] LABS: HEMATOCRIT 37.4 % (37.0-47.0); HEMOGLOBIN 11.4 g/dl (12.0-16.0); MEAN CELL VOLUME 92.6 fL CALC (80.0-100.0); MEAN CORPUSCULAR HGB 28.2 pG CALC (26.0-32.0); MEAN CORPUSCULAR HGB CONC 30.5 g/dL CAL (32.0-36.0); RED BLOOD COUNT 4.04 mill/uL (4.20-5.60); RED CELL DISTRI WIDTH 14.5 % (11.5-15.5)
[2023-12-22 08:17] LABS: ALBUMIN 3.5 g/dL (3.2-5.0); BILIRUBIN, TOTAL 0.6 mg/dL (0.02-1.3); CREATININE 0.8 mg/dL (0.5-1.0); MAGNESIUM 1.8 mg/dL (1.6-2.3); POTASSIUM 4.2 mmol/l (3.5-5.1); TOTAL PROTEIN 7.4 g/dL (6.3-8.2)
[2023-12-22 11:43] VITALS: BP 1441/57
--- NOTE | 2023-12-22 12:00 | NUR ---
PATIENT SITTING UP IN BED. AXO X 4. DENIES ANY NEEDS AT THIS TIME. CALL LIGHT IN REACH. VSS.
--- NOTE | 2023-12-22 13:43 | NUR ---
Discharge instructions given. Patient verbalizes understanding of DISCAHRGE INSTRUCTIONS. All questions answered. Discharged in stable condition via Ambulatory to Home with staff. All belongings sent with pt. IV removed.
--- NOTE | 2023-12-23 11:03 | NUR ---
DISCHARGE FOLLOW UP CALL COMPLETED 12/23/23. PT STATES SHE IS DOING WELL AND HAS HAD NO ISSUES SINCE DISCHARGE. PATIENT HAS NOT GOTTEN MEDICATION PRESCRIBED AT DISCHARGE. SHE WANTS TO SPEAK TO HER PCP BEFORE TAKING NEW MEDS. PATIENT HAS A FOLLOW UP APPOINTMENT ON 12/25/23. NO NEEDS OR CONCERNS VERBALIZED AT THIS TIME. PATIENT EXPRESSED HER APPRECIATION FOR KINDNESS OF STAFF DURING HER HOSPITAL STAY.
== END 2023-12-22 13:39 | disposition home or self-care (01) ==
LOC: ED 08:18 → ED-I 09:29 → ED 11:24 → MS2 11:25
PROVIDERS: Family Medicine; Student in an Organized Health Care Education/Training Program; ADMIT Internal Medicine; ATTEND Internal Medicine
DX: U07.1 COVID-19 (principal); R05.9 Cough, unspecified; R13.10 Dysphagia, unspecified; R53.1 Weakness; E86.0 Dehydration; J02.9 Acute pharyngitis, unspecified; R68.83 Chills (without fever); I10 Essential (primary) hypertension; E11.9 Type 2 diabetes mellitus without complications; E03.9 Hypothyroidism, unspecified; G89.4 Chronic pain syndrome; E66.9 Obesity, unspecified; Z68.37 Body mass index [BMI] 37.0-37.9, adult; Z79.84 Long term (current) use of oral hypoglycemic drugs
CPT/HCPCS: J1650; Q9967

== ENCOUNTER 2024-06-15 08:20 | Emergency (ER) | payer MEDICARE, OTHER ==
[2024-06-15] VITALS (7 sets, daily range): BP systolic 115–168; BP diastolic 74–94
[~2024-06-15] VITALS: Ht 162.6 cm; Wt 95.0 kg
[~2024-06-15 08:20] MED LIST changes: +ATORVASTATIN CA80 MG PO
[2024-06-15] MEDS ORDERED: IPRATROPIUM-Albuterol 0.5MG-2.5MG/3 ML NEB ONE (08:45)
[2024-06-15] MEDS ORDERED: methylPREDNISolone SODIUM SUCC 125 MG/2 ML SDV IM ONE (08:45)
[2024-06-15] MEDS ORDERED: PREDNISONE50 MG PO (09:45)
[2024-06-15] MEDS ORDERED: BENZONATATE200 MG PO (09:45)
[2024-06-15] MEDS ORDERED: TAM75CAP PO (09:45)
[2024-06-15] MEDS ORDERED: OSELTAMIVIR PHOSPHATE 75 MG/TAB CAP PO ONE (09:45)
== END 2024-06-15 09:52 | disposition home or self-care (01) ==
LOC: ED 08:20
DX: J10.1 Influenza due to other identified influenza virus with other respiratory manifestations (principal); J98.01 Acute bronchospasm; E11.9 Type 2 diabetes mellitus without complications; E66.9 Obesity, unspecified; G89.4 Chronic pain syndrome; Z79.84 Long term (current) use of oral hypoglycemic drugs; Z20.822 Contact with and (suspected) exposure to COVID-19